=== PATIENT | male | born 1960 | race Caucasian/White ===

== ENCOUNTER 2016-11-24 14:28 | Emergency (ER) | payer BC ==
[~2016-11-24 14:28] MED LIST: ACIPHEX20 MG; ALTACE; ASPIRIN81 MG PO; AUGMENTIN875 M1 PO; AXIRON90 ML TD; BRILINTA60 MG PO; CELEXA20 MG PO; CIPRO PO; CLEOCIN PO; CLOPIDOGREL BIS75 MG PO; CLOPIDOGREL75 MG PO; COZAAR PO; DICYCLOMINE; FOLIC ACID; HYDROCODON-ACE1 EAC7 PO; HYDROCODONE-APA1 T33; IMDUR; IMDUR-ER30 M1 PO; ISOSORBIDE MONO30 M1 PO; KEFLEX; LEXAPRO; LORTAB 7.5-3251 EACH PO; METOPROLOL SUCC25 MG PO; METOPROLOL TART25 MG PO; NICOTINE TRANSD21 MG EXT; NITROGLYGERIN0.4 MG SL; PAIN RELIEF650 MG PO; PANTOPRAZOLE SO40 MG PO; PLAVIX; SIMVASTATIN40 MG PO; TOPROL XL; VICODIN 5/500 T1 TAB PO; VYTORIN; VYTORIN 10-40 T1 TAB PO
== END 2016-11-24 16:40 | disposition home or self-care (01) ==
LOC: CED 14:28 → CFTX 14:28
DX: L02.31 Cutaneous abscess of buttock (principal); I25.2 Old myocardial infarction; K21.9 Gastro-esophageal reflux disease without esophagitis; I10 Essential (primary) hypertension; F17.210 Nicotine dependence, cigarettes, uncomplicated
CPT/HCPCS: 99282

== ENCOUNTER 2016-11-27 10:12 | Emergency (ER) | payer BC | END 2016-11-27 12:39 | disposition home or self-care (01) | LOC: CED 10:12 → CFTX 10:12 | DX: L02.31 Cutaneous abscess of buttock (principal); Z23 Encounter for immunization; I10 Essential (primary) hypertension; I25.2 Old myocardial infarction; F17.200 Nicotine dependence, unspecified, uncomplicated; Z79.899 Other long term (current) drug therapy | CPT/HCPCS: 10060; 90471; 90715; 99283 ==

== ENCOUNTER 2016-12-12 10:36 | Emergency (ER) | payer BC ==
--- NOTE | ~2016-12-12 | CT2 ---
[facility] A Service of [facility] RADIOLOGY TEXT RESULTS PATIENT: JOSE SAGASTUME LOCATION: [facility] : 56 UNIT #: [id number] AGE: [address]: Cuate Felder MD SEX: M ORDER DR: [id number] [facility] [address] [place], [place] [address] [id number] E MR#: [id number] Acc #: [id number] NAME: JOSE SAGASTUME. : 1960 SEX: M STUDY DATE/TIME: 12/12/2016 12:37 UNIT: [facility] ROOM: STUDY DESCRIPTION: CT Abd and Pelv W Cont Attending Physician: Cuate Felder M.D. Ordering Physician: Cuate Felder M.D. Primary Care Physician: Javier Avila M.D. MEDICAL IMAGING REPORT This report is preliminary unless electronic signature is present EXAM CT of abdomen and pelvis with contrast. HISTORY 56-year-old male with abscess on right inner buttock x3 days, pain and swelling. COMPARISON CT abdomen and pelvis, 06/11/2015. TECHNIQUE Axial images performed through the abdomen and pelvis following IV contrast. Multiplanar reconstructed images viewed workstation. This CT exam was performed with one or more of the following radiation dose reduction techniques: automatic exposure control, adjustment of mA and/or kV according to patient size, and iterative reconstruction. FINDINGS PELVIS: There is focal induration of the subcutaneous and deep soft tissues along the medial right thigh and gluteal region extending into the right ischium rectal fossa and into the perirectal soft tissues. Findings are compatible with a perirectal abscess and associated cellulitis. Abscess measures at least 6 cm in cephalocaudal dimension and does extend to the rectal wall. Bladder and prostate unremarkable. No significant adenopathy. ABDOMEN: Liver, spleen, gallbladder, pancreas, kidneys and adrenal glands unremarkable. The visualized GI tract to include the appendix unremarkable. Degenerative changes noted within the lower lumbar spine. IMPRESSION CT confirms a right perirectal abscess with associated overlying STS. [facility] A Service [facility] RADIOLOGY TEXT RESULTS PATIENT: JOSE SAGASTUME LOCATION: [facility] #: [id number] : 56 UNIT #: [id number] AGE: [address]: uCate Felder MD SEX: M ORDER DR: cellulitis which appears almost identical to the presentation in June of 2015. Fluid collection measures at least 6 cm in cephalocaudal dimension and probably measures closer to 8 cm in length which is similar to the previous examination. Remainder of the abdomen and pelvis unremarkable. Dictated by... Chele Torres M.D. THIS IS AN ELECTRONICALLY VERIFIED REPORT Chele Torres M.D. at 12/13/2016 12:30 PM Alanna TD: 12/13/2016 00:35 JOB #: [id number] MEDICAL IMAGING REPORT Page 1 of 1 COPY
--- NOTE | ~2016-12-12 | EKG ---
PATIENT: JOSE SAGASTUME UNIT #: [id number] Ventricular Rate: 100 BPM Atrial Rate: 100 BPM P-R Interval: 142 ms QRS Duration: 94 ms Q-T Interval: 344 ms QTC Calculation(Bezet): 443 ms P [place]: 80 degrees Calculated R [place]: 89 degrees Calculated T [place]: -5 degrees Diagnosis Line: Sinus rhythm with occasional Premature ventricular Diagnosis Line: complexes Diagnosis Line: Possible Left atrial enlargement Diagnosis Line: T wave abnormality, consider inferior ischemia Diagnosis Line: Abnormal ECG Diagnosis Line: When compared with ECG of 03-JUL-2016 05:30, Diagnosis Line: Premature ventricular complexes are now Present Diagnosis Line: Aberrant conduction is no longer Present Diagnosis Line: Confirmed by JUNG TERESA MD ([id number]) on Diagnosis Line: 12/13/2016 8:21:40 AM INTERPRETING MD: MALICK GARCIA
[2016-12-12 11:31] LABS: POC - CKMB <1.0 ng/mL (0.0-7.9); POC - TROPONIN <0.05 ng/mL (<=0.05)
[2016-12-12 11:41] LABS: BASOPHIL% 0.3 % (0-2.5); HEMATOCRIT 43.9 % (38.0-50.0); HEMOGLOBIN 14.3 gm/dL (13.0-16.0); LYMPHOCYTE# 5.2 X10e3 (1.0-3.5); LYMPHOCYTE% 34.8 % (17.0-45.0); MEAN CORPUSCULAR HEMOGLOBIN 28.1 PG (28-34); MEAN CORPUSCULAR HGB CONC 32.7 g/dL (30-36); MEAN PLATELET VOLUME 8.8 FL (6.5-11.5); MONOCYTE# 0.9 X10e3 (0-1.0); NEUTROPHIL# 8.8 X10e3 (1.5-7.1); NEUTROPHIL% 58.9 % (40-75); PLATELET COUNT 160 X10e3 (140-420); RED BLOOD COUNT 5.11 X10e (3.90-5.60); RED CELL DISTRIBUTION WIDTH 14.2 % (11.0-15.5); WHITE BLOOD COUNT 14.9 X10e3 (4.0-10.5)
[2016-12-12 11:43] LABS: DIFF IND NO
[2016-12-12 12:01] LABS: ALBUMIN SERUM 3.6 g/dL (3.5-5.0); BILIRUBIN, DIRECT 0.1 mg/dL (0.0-0.2); BILIRUBIN,INDIRECT 0.6 mg/dL (0.0-0.9); BILIRUBIN,TOTAL 0.7 mg/dL (0.2-2.0); BUN/CREATININE RATIO 6.66; CALCIUM SERUM 8.6 mg/dL (8.4-10.2); CREATININE SERUM 1.2 mg/dL (0.6-1.4); GLOM FILT RATE Estimated 66.3 mL/min (>60); POTASSIUM 3.7 mmol/L (3.5-5.1); PROTEIN TOTAL SERUM 7.5 g/dL (6.0-8.3)
== END 2016-12-12 16:05 | disposition home or self-care (01) ==
LOC: CED 10:36
PROVIDERS: Emergency Medicine
DX: K61.1 Rectal abscess (principal); I10 Essential (primary) hypertension; I25.2 Old myocardial infarction; Z87.891 Personal history of nicotine dependence
CPT/HCPCS: 10060; 36415; 74177; 80048; 80076; 82553; 83605; 84484; 85025; 93005; 96361; 96365; 99284; Q9967